=== PATIENT | female | born 1945 | race Caucasian/White ===

== ENCOUNTER → 2016-06-05 | Day surgery (SDC) | payer MEDICARE ==
--- NOTE | 2016-05-30 02:20 | CR ---
DATE OF CONSULTATION: 05/29/2016 PREOPERATIVE CONSULTATION: FOR: Dr. Jo for cataract extraction 06/05/2016 at [facility] ([facility]). Dear Dr. Jo: Thank you for asking me to see Ms. Grace Toribio in consultation prior to her cataract extraction. Patient is, as you know, a 71-year-old female, past medical history of legal blindness, hypothyroidism, osteoporosis, gastroesophageal reflux disease (GERD), who reports that she has been in her usual state of good health. Patient did have a surgical procedure, left tympanoplasty, 04/10/[address] Price with good results and progressive recovery. She denies any fevers or chills, chest pain, or shortness of breath. Patient reports tendency for loose stools. Avoids apple juice, soda, orange juice. Reports this is chronic, stable, and controlled in general with one Imodium a day. The patient has known osteoarthritis (OA), degenerative joint disease (DJD). She has intermittent right shoulder pain. She uses as-needed medicine to control pain as needed. This is chronic, stable. Patient has GERD. She takes ranitidine; rarely needs Tums. Patient is legally blind. She is hoping that the cataract extractions will help her vision. Patient reports increased stressors with her grandson and his significant other planning on moving in with her shortly. She is concerned about this. REVIEW OF SYSTEMS: Otherwise, negative. PAST MEDICAL HISTORY: 1. Uveitis with resultant legal blindness. 2. OA, DJD. 3. History of a ruptured appendix. 4. G2, P2. 5. Menopausal 1993. 6. Cholecystectomy in 2000. 7. Tension headaches. 8. Tobacco cessation after smoking 1 to 1-1/2 packs a day for 30 years; quit at age 57. 9. Esophageal mass, status post esophagogastroduodenoscopy (EGD) 01/2001, 05/2001, 12/2006, 01/2012 with the mass eventually felt to be secondary to reactive lymphocytes. EGDs have shown gastritis, intestinal metaplasia, reflux esophagitis. 10. Osteoporosis. History of Boniva use 07/2005 through fall 2008. Continues on calcium and D. Follows for that with Alesha Jaimes. 11. Grave's thyroiditis, status post radioactive iodine. Managed by Dr. Jaimes. 12. Vitamin D deficiency. 13. Rheumatic fever as a child. 14. Left perforated tympanic membrane , status post surgical correction March [address] Price. 15. Irritable bowel syndrome (IBS) with diarrhea. 16. Hyperlipidemia. MEDICATIONS: - Imodium 2 mg daily and as needed - levothyroxine 75 mcg daily - multivitamin daily - pravastatin 10 mg nightly - ranitidine 150 mg by mouth twice a day - Tums as needed - Viactiv daily - vitamin D3, 5000 international units daily DRUG ALLERGIES: None. SOCIAL HISTORY: Lives independently. Legally blind. Retired. Quit smoking at age 57 after smoking 30-50 pack-years. She raised her grandson who had moved to [place] but is presently moving back. FAMILY HISTORY: Father of a heart attack at 83. Mom had hypertension and of a heart attack at 82. Her sister had lung cancer and at 68. Her grandmother had throat cancer, and an aunt had anal cancer. PHYSICAL EXAM: No acute distress. VITAL SIGNS: Are weight 148 with a blood pressure of 112/76, heart rate of 64 and regular, oxygen saturation is 97%. HEENT: Head is normocephalic. Neck is supple. She does wear dentures. She is legally blind, but extraocular movements are intact. Left tympanic membrane is scarred from recent surgery, scant amount of erythema. Incision behind the left ear is healing well. NECK: Is supple. No thyromegaly, jugular venous distention (JVD), carotid bruits. RESPIRATORY: Clear to auscultation. Resonant to percussion. CARDIOVASCULAR: Soft systolic murmur. Regular rate, rhythm. BREAST EXAM: Deferred. ABDOMEN: Normoactive bowel sounds. Soft, nontender. No hepatosplenomegaly. EXTREMITIES: Some significant arthritic changes. right hand greater than left. NEUROLOGIC: Alert and oriented. Cranial nerves II-XII are intact. LABORATORY DATA: From 03/26/2016, EKG shows sinus bradycardia, rate of 57, axis of 8 degrees. Normal TX, QRS, QTc interval. Normal R wave progression. No atrial or ventricular hypertrophy. No pathologic Q waves. Unchanged from previous EKG. 03/26/2016 showed a normal med profile. From 02/14/2016, showed lipids with a total cholesterol of 204 and LDL of 121. From 02/02/2016, normal CBC, TSH. From 10/06/2015, normal vitamin D at 63. IMPRESSION: Ms. Grace Toribio is a 71-year-old female with cardiovascular risk factors positive for age, hyperlipidemia. Patient has no signs or symptoms indicative of cardiovascular ischemia and is felt to be optimized and at low risk for cardiovascular complications from the proposed surgical intervention, which can be further minimized by the followin. Hyperlipidemia. Patient will continue pravastatin perioperatively but hold morning of surgery. 2. Gastroesophageal reflux disease. Patient will take her ranitidine morning of surgery. 3. Hypothyroid. Patient will take her Levoxyl morning of surgery. 4. Irritable bowel syndrome with diarrhea. Patient will take her Imodium morning of surgery. 5. Vitamin D deficiency. Hold vitamin D and calcium morning of surgery. 6. Osteoarthritis, degenerative joint disease. No nonsteroidal anti-inflammatory drugs (NSAIDs). I have approved use of Tylenol as needed and topical therapies perioperatively. 7. Tinnitus, slightly improved. Patient unsure whether she is adapting to this or it is actually improving. 8. Uveitis, declining vision. Hopefully will improve with cataract extractions. 9. Stress. Support offered. Thank you for this consultation. Please call with any questions or concerns.
[~2016-06-05] VITALS: Ht 154.9 cm; Wt 67.1 kg
[~2016-06-05] MED LIST: ACETAMINOPHEN 325 MG TAB PO PRN; AcetaZOLAMIDE 500 MG ER CAP PO ONE; BSS with VANC/TOB/EPI for EYE CASES IR ONE; CALC500C PO; CALC500C8 PO; CYCLOPENTOLATE 2% OPHTH SOLN OS ONE; D5W/0.2% SODIUM CHLORIDE 250 ML IV SCH; HEALON DUET (HEALON 10MG/ML 0.55ML & HEALON ENDOCOAT 30MG/ML 0.85ML) As Ordered ONE; HEALON DUET (HEALON 10MG/ML 0.55ML & HEALON ENDOCOAT 30MG/ML 0.85ML) XX ONE; IMOD2CHW PO; KETOROLAC 0.5% OPHTH SOLN OS ONE; LEVO75TA4 PO; LIDOCAINE 1% SDV 5 ML VIAL As Ordered ONE; LIDOCAINE 1% SDV 5 ML VIAL XX ONE; LIDOCAINE 4% INJ 5 ML AMP OU ONE; LIDOCAINE W/EPINEPHRINE 1% 20ML VIAL XX ONE; LOPE2TAB3 PO; MIDAZOLAM INJ 2 MG/2 ML VIAL (J2250) As Ordered ONE; MOXIFLOXACIN IN BSS 0.25MG/0.25ML INTRACAMERAL INJ (OR EYE ONLY)(J2280) As Ordered ONE; MOXIFLOXACIN IN BSS 0.25MG/0.25ML INTRACAMERAL INJ (OR EYE ONLY)(J2280) ICAM ONE; MULTCHW13 PO; OFLOXACIN 0.3 % (OCUFLOX) OPTH SOL 5ML XX ONE; PHENYLEPHRINE 2.5% OPHTH SOL 2ML OS ONE; POVIDONE-IODINE 5% OPHTH PREP SOL 30ML As Ordered ONE; PRAV10TA3 PO; PRAV40TA2 PO; PROPARACAINE 0.5% OPHTH SOL 15ML OS PRN; RANI15TA PO; TRIAMCINOLONE PRES FR 40 MG/ML 1ML(TRIESENCE)(OR EYE ONLY)(J3300 PER 1MG) As Ordered ONE; TRIAMCINOLONE PRES FR 40 MG/ML 1ML(TRIESENCE)(OR EYE ONLY)(J3300 PER 1MG) IO ONE; TRIMETHOBENZAMIDE 300 MG CAP PO PRN; TROPICAMIDE 1% OPHTH SOLN 2 ML OS ONE; VITA200016 PO; fentaNYL 100 MCG/2 ML INJECTION (J3010) As Ordered ONE
[2016-06-05 10:35] VITALS: BP 116/63
== END | disposition home or self-care (01) ==
LOC: M SDC 08:26
PROVIDERS: ATTEND Ophthalmology
DX: H26.9 Unspecified cataract (principal); E05.00 Thyrotoxicosis with diffuse goiter without thyrotoxic crisis or storm; E55.9 Vitamin D deficiency, unspecified; K21.9 Gastro-esophageal reflux disease without esophagitis; H93.19 Tinnitus, unspecified ear; H20.10 Chronic iridocyclitis, unspecified eye; K58.0 Irritable bowel syndrome with diarrhea; E78.5 Hyperlipidemia, unspecified; M15.0 Primary generalized (osteo)arthritis; M81.0 Age-related osteoporosis without current pathological fracture; K29.70 Gastritis, unspecified, without bleeding; R51 Headache; H54.8 Legal blindness, as defined in USA; Z78.0 Asymptomatic menopausal state; Z79.899 Other long term (current) drug therapy; Z87.891 Personal history of nicotine dependence
CPT/HCPCS: 66984; J2250; J2280; J3010; J3300; V2632

== ENCOUNTER → 2016-07-15 | Day surgery (SDC) | payer MEDICARE ==
--- NOTE | 2016-07-08 01:39 | CR ---
DATE OF CONSULTATION: 07/02/2016 PREOPERATIVE CONSULTATION: Dr. Mayuri Vargas dictating a preoperative consultation on Grace Toribio for right cataract extraction scheduled for 07/15/2016 at [facility] ([facility]). Dear Dr. Jo: Thank you for asking me to see Ms. Grace Toribio in consultation prior to her cataract extraction. Ms. Toribio is, as you know, a 71-year-old female with a past medical history of legal blindness, hypothyroidism, osteoporosis, gastroesophageal reflux disease (GERD), who reports that she has been in her usual state of good health except for recent stressors related to her grandson and friend moving into her home. Patient is status post left cataract extraction about a month ago with good results, although she reports she is on some additional eye drops for inflammation. She is pleased that her vision has improved since having had the cataract extracted. Patient has known history of GERD, well controlled on ranitidine twice a day. Patient has chronic diarrhea, well controlled with one pill of Imodium a day. Patient is status post left tympanoplasty 04/10/2016. Reports she continues to recover, although posteriorly her ear is itchy as it is healing. Patient has known osteoarthritis (OA)/degenerative joint disease (DJD), particularly right shoulder but chronic/stable. Patient reports some chest tightness. She has had two episodes. They are not related to activity, and she feels they are stress related. Symptoms are brief. One episode occurred while driving and radiated to her right armpit. Another episode occurred while sitting and radiated to her throat. She is active on the treadmill three times a week, walking 30 minutes at a time with no chest pain, palpitations, syncope, or presyncope. Patient notes that the two episodes of chest pain occurred since her grandson and his friend moved in with her. She admits that she has had increased stress and anxiety since that time. Patient, otherwise, denies any fevers or chills, chest pain or shortness of breath, nausea, or vomiting. Patient does complain of fatigue. She has chronic insomnia, in general sleeping only 5 hours at night, and this has been worse with increased stressors. REVIEW OF SYSTEMS: Otherwise, negative. PAST MEDICAL HISTORY: 1. Uveitis with resultant legal blindness. 2. OA/DJD. 3. History of a ruptured appendix. 4. G2, P2. 5. Menopausal 1993. 6. Cholecystectomy 2000. 7. Tension headaches. 8. Tobacco cessation. Smoked 1 to 1-1/2 packs a day for 30 years, quit at age 57. 9. Esophageal mass status post esophagogastroduodenoscopy (EGD) January 2001, May 2001, December 2006, January 2012 with a mass eventually felt to be benign and secondary to reactive lymphocytes. Patient did have evidence of gastritis, intestinal metaplasia, and reflux esophagitis. 10. Osteoporosis. History of Boniva use 2005 through 2008. Follow[address] with Dr. Alesha Jaimes. 11. Graves' thyroiditis status post radioactive iodine. Managed with Dr. Alesha Jaimes. 12. Vitamin D deficiency. Managed with Dr. Jaimes. 13. Rheumatic fever as a child. 14. Left perforated tympanic membrane 1980 status post surgical correction March [address] Price. 15. Irritable bowel syndrome (IBS) with diarrhea, maintained on Imodium. 16. Hyperlipidemia. PATIENT'S MEDICATIONS: Are: - coated baby aspirin daily - pravastatin 10 mg daily - Viactiv twice a day - ranitidine 150 mg twice a day - levothyroxine 75 mcg daily - vitamin D3, 5000 international units daily - multivitamin daily - Tums as needed - Imodium daily SOCIAL HISTORY: Lives independent. Legally blind. Retired. Quit smoking at age 57 after smoking 30-50 years. She raised her grandson who moved to [place] but has just recently moved back with his significant other. Both are seeking employment. Multiple stressors. FAMILY HISTORY: Father of heart disease at 83. Mom had hypertension, of heart disease at 82. Patient's sister had lung cancer and at 68. Her grandmother had throat cancer, and an aunt anal cancer. PHYSICAL EXAM: She is a thin female. No acute distress. Vital Signs: Are weight 147 with a body mass index (BMI) of 27.5. Oxygen saturation is 98%. Blood pressure 126/80 with a heart rate of 84. HEENT Exam: Head is normocephalic. Neck is supple. Wears dentures. Legally blind. Extraocular movements intact. Left tympanic membrane is scarred from recent surgery. Incision behind left ear is healing well. Neck: Is supple. No thyromegaly, jugular venous distention (JVD), carotid bruits. Cardiovascular: Regular rate, rhythm. Soft systolic murmur. No reproducible pain with pressure over the chest wall. Respiratory: Clear to auscultation. Breast Exam: Deferred. Abdomen: Normoactive bowel sounds. Soft, nontender. No hepatosplenomegaly. Extremities: Some arthritic changes, right greater than left. Neurologically: Intact. LABORATORY DATA: An EKG updated today shows normal sinus rhythm, rate of 69, axis of 12 degrees, normal NH, QRS, QTc. No atrial or ventricular hypertrophy. No pathologic Q waves. Essentially normal EKG. Unchanged from previous EKG. Laboratory data from 03/26/2016 showed normal med profile. 02/14/2016 showed lipids with a total cholesterol of 204 and an LDL of 121. From 02/02/2016, normal CBC, TSH. From 10/06/2015, she had a normal vitamin D at 63. IMPRESSION: Ms. Grace Toribio is a 71-year-old female with cardiovascular risk factors positive only for age and hyperlipidemia. Patient has had some atypical chest pain. EKG is unchanged, and this is not felt to be cardiac in etiology but stress induced. Patient is felt to be optimized and at low risk for cardiovascular complications from the proposed surgical intervention, which can be further minimized by the following: PROBLEMS: 1. Hyperlipidemia. Take pravastatin morning of surgery as usual. She will hold her aspirin morning of surgery. 2. Gastroesophageal reflux disease. Take ranitidine morning of surgery as usual. 3. Hypothyroid. Take Levoxyl with sip of water morning of surgery. 4. Irritable bowel syndrome with diarrhea. Take Imodium morning of surgery. 5. Vitamin D deficiency. Hold D and calcium morning of surgery. 6. Osteoarthritis/degenerative joint disease. I have approved Tylenol prior to surgery. 7. Stress. Support offered. Further evaluation/treatment discussed and refused at this time. Patient will followup with me in July. 8. Insomnia, chronic. Good sleep habits reinforced. Stress reduction encouraged.
[~2016-07-15] VITALS: Ht 154.9 cm; Wt 66.7 kg
[~2016-07-15] MED LIST changes: +CYCLOPENTOLATE 2% OPHTH SOLN OD ONE; -CYCLOPENTOLATE 2% OPHTH SOLN OS ONE; -HEALON DUET (HEALON 10MG/ML 0.55ML & HEALON ENDOCOAT 30MG/ML 0.85ML) XX ONE; +KETOROLAC 0.5% OPHTH SOLN OD ONE; -KETOROLAC 0.5% OPHTH SOLN OS ONE; -LIDOCAINE 1% SDV 5 ML VIAL XX ONE; -LIDOCAINE W/EPINEPHRINE 1% 20ML VIAL XX ONE; -MOXIFLOXACIN IN BSS 0.25MG/0.25ML INTRACAMERAL INJ (OR EYE ONLY)(J2280) ICAM ONE; +OFLOXACIN 0.3 % (OCUFLOX) OPTH SOL 5ML OD ONE; -OFLOXACIN 0.3 % (OCUFLOX) OPTH SOL 5ML XX ONE; +PHENYLEPHRINE 2.5% OPHTH SOL 2ML OD ONE; -PHENYLEPHRINE 2.5% OPHTH SOL 2ML OS ONE; +PROPARACAINE 0.5% OPHTH SOL 15ML OD PRN; -PROPARACAINE 0.5% OPHTH SOL 15ML OS PRN; -TRIAMCINOLONE PRES FR 40 MG/ML 1ML(TRIESENCE)(OR EYE ONLY)(J3300 PER 1MG) IO ONE; +TROPICAMIDE 1% OPHTH SOLN 2 ML OD ONE; -TROPICAMIDE 1% OPHTH SOLN 2 ML OS ONE
[2016-07-15 12:05] VITALS: BP 146/64
== END | disposition home or self-care (01) ==
LOC: M SDC 09:37
PROVIDERS: ATTEND Ophthalmology
DX: H26.9 Unspecified cataract (principal); F17.290 Nicotine dependence, other tobacco product, uncomplicated; E03.9 Hypothyroidism, unspecified; E78.00 Pure hypercholesterolemia, unspecified; K58.9 Irritable bowel syndrome, unspecified; K21.9 Gastro-esophageal reflux disease without esophagitis; M54.9 Dorsalgia, unspecified; Z90.710 Acquired absence of both cervix and uterus; Z79.899 Other long term (current) drug therapy
CPT/HCPCS: 66984; J2250; J2280; J3010; J3300; V2632

== ENCOUNTER 2017-04-29 12:36 | Day surgery (SDC) | payer MEDICARE ==
[2017-04-29] MEDS: LR 1,000 ML IV (13:00)
[2017-04-29] MEDS ORDERED: LIDOCAINE 2% INJ 100 MG/5 ML SDV (FOR ANES.) As Ordered (15:27)
[2017-04-29] MEDS ORDERED: PROPOFOL 200 MG/20 ML VIAL As Ordered ×3 (15:27→15:41)
== END 2017-04-29 16:25 | disposition home or self-care (01) ==
LOC: M OPP 12:36
DX: R13.10 Dysphagia, unspecified (principal); K44.9 Diaphragmatic hernia without obstruction or gangrene; K22.2 Esophageal obstruction; M19.90 Unspecified osteoarthritis, unspecified site; E78.5 Hyperlipidemia, unspecified; E05.90 Thyrotoxicosis, unspecified without thyrotoxic crisis or storm; K21.9 Gastro-esophageal reflux disease without esophagitis; M81.0 Age-related osteoporosis without current pathological fracture; Z78.0 Asymptomatic menopausal state; Z79.899 Other long term (current) drug therapy
CPT/HCPCS: 43249

== ENCOUNTER → 2019-02-25 | Outpatient (REF) | payer MEDICARE ==
[~2019-02-25] MED LIST changes: -ACETAMINOPHEN 325 MG TAB PO PRN; -AcetaZOLAMIDE 500 MG ER CAP PO ONE; -BSS with VANC/TOB/EPI for EYE CASES IR ONE; -CYCLOPENTOLATE 2% OPHTH SOLN OD ONE; -D5W/0.2% SODIUM CHLORIDE 250 ML IV SCH; -HEALON DUET (HEALON 10MG/ML 0.55ML & HEALON ENDOCOAT 30MG/ML 0.85ML) As Ordered ONE; +IMOD2CAP PO; -KETOROLAC 0.5% OPHTH SOLN OD ONE; -LIDOCAINE 1% SDV 5 ML VIAL As Ordered ONE; -LIDOCAINE 4% INJ 5 ML AMP OU ONE; +LOPE2TAB12 PO; -MIDAZOLAM INJ 2 MG/2 ML VIAL (J2250) As Ordered ONE; -MOXIFLOXACIN IN BSS 0.25MG/0.25ML INTRACAMERAL INJ (OR EYE ONLY)(J2280) As Ordered ONE; -MULTCHW13 PO; +MULTCHW14 PO; -OFLOXACIN 0.3 % (OCUFLOX) OPTH SOL 5ML OD ONE; -PHENYLEPHRINE 2.5% OPHTH SOL 2ML OD ONE; -POVIDONE-IODINE 5% OPHTH PREP SOL 30ML As Ordered ONE; -PROPARACAINE 0.5% OPHTH SOL 15ML OD PRN; -TRIAMCINOLONE PRES FR 40 MG/ML 1ML(TRIESENCE)(OR EYE ONLY)(J3300 PER 1MG) As Ordered ONE; -TRIMETHOBENZAMIDE 300 MG CAP PO PRN; -TROPICAMIDE 1% OPHTH SOLN 2 ML OD ONE; -fentaNYL 100 MCG/2 ML INJECTION (J3010) As Ordered ONE
== END ==
LOC: M LAB REF 13:26
PROVIDERS: ATTEND Otolaryngology
DX: H60.8X1 Other otitis externa, right ear (principal)

== ENCOUNTER → 2019-07-27 | Outpatient (REF) | payer MEDICARE, MEDICAID ==
[2019-07-27 13:17] LABS: C REACTIVE PROTEIN QUANTITATIV 3.79 MG/DL (0.00-0.30); RHEUMATOID FACTOR QUANT < 10.0 IU/ML (<15.0)
[2019-07-27 23:13] LABS: FERRITIN 170 NG/ML (8-252); IRON (FE) 65 UG/DL (50-170); PERCENT SATURATION 18.1 % (13.2-45.0); TOTAL IRON BINDING CAPACITY 359 UG/DL (250-450)
[2019-07-29 00:10] LABS: ANA (HEP2) Negative (.); ANGIOTENSIN 1 CONVERTING ENZYM 18 U/L (14-82); CYCLIC CITRULLINATED PEPTIDE 25 units (0-19)
== END ==
LOC: M LAB REF 12:26
PROVIDERS: ATTEND Internal Medicine
DX: H20.013 Primary iridocyclitis, bilateral (principal); D64.9 Anemia, unspecified; Z79.899 Other long term (current) drug therapy

== ENCOUNTER → 2019-11-04 | Outpatient (REF) | payer MEDICARE | LOC: M LAB REF 12:28 | PROVIDERS: ATTEND Internal Medicine | DX: M06.4 Inflammatory polyarthropathy (principal) ==

== ENCOUNTER → 2020-02-01 | Outpatient (REF) | payer MEDICARE | LOC: M LAB REF 12:39 | PROVIDERS: ATTEND Internal Medicine | DX: M25.40 Effusion, unspecified joint (principal) ==

== ENCOUNTER → 2020-03-02 | Outpatient (REF) | payer MEDICARE | LOC: M SFHCRHEU 12:50 | PROVIDERS: ATTEND Internal Medicine | DX: R76.8 Other specified abnormal immunological findings in serum (principal); R70.0 Elevated erythrocyte sedimentation rate; R79.82 Elevated C-reactive protein (CRP) | CPT/HCPCS: 85652; 86140; 86200; G0463 ==

== ENCOUNTER → 2020-04-06 | Outpatient (REF) | payer MEDICARE ==
[2020-04-06 13:07] LABS: INR 0.91; PROTHROMBIN TIME 12.4 SECONDS (12.5-14.3)
[2020-04-06 13:08] LABS: PARTIAL THROMBOPLASTIN TIME 30.7 SECONDS (24.2-38.5)
== END ==
LOC: M LAB REF 12:31
PROVIDERS: ATTEND Internal Medicine
DX: I89.8 Other specified noninfective disorders of lymphatic vessels and lymph nodes (principal)

== ENCOUNTER → 2020-04-14 | Outpatient (CLI) | payer MEDICARE ==
[~2020-04-14] MED LIST changes: +D31000TA2 PO; +FOSA70TA PO; +LIDOCAINE 1% MDV 20ML VIAL As Ordered ONE; +OYST1TAB PO; +SODIUM BICARBONATE 8.4% INJ 50MEQ 50 ML VIAL As Ordered ONE; +VITMTA PO; +XIID5DRO
[2020-04-14 12:52] VITALS: BP 135/63
--- NOTE | 2020-04-14 16:14 | REP ---
INDICATION: LT PELVIC MASS. COMPARISON: None. TECHNIQUE: The procedure was performed by MYRIAM Nevarez, under the direct supervision of Dr. Laird. The risks and benefits of the procedure were explained to the patient and an informed consent was obtained both verbally and written. Directly prior to the start of the procedure a formal time-out was completed in the procedure room. FINDINGS: Using ultrasound guidance the left pelvic mass was localized. The skin was prepped and draped in a sterile fashion. Twenty mL of buffered lidocaine was used as a local anesthetic. Using ultrasound guidance a 17/18 gauge coaxial needle biopsy system was inserted and advanced into the left pelvic mass. Eight core biopsy specimens were obtained. Four specimens were sent to our lab here, and remaining 4 were sent out in RPMI solution, for further testing The patient tolerated the procedure well and there were no immediate complications. After the appropriate amount of monitored convalescence the patient was discharged from the department. IMPRESSION: 1. Ultrasound-guided left pelvic mass biopsy. <Electronically signed by Maureen Toney > 04/14/20 1440 <Electronically signed by Tristen Laird > 04/14/20 1610
== END ==
LOC: M IRPRO 11:47
PROVIDERS: ATTEND Internal Medicine
DX: C83.30 Diffuse large B-cell lymphoma, unspecified site (principal)

== ENCOUNTER → 2020-05-12 | Outpatient (CLI) | payer MEDICARE ==
[~2020-05-12] MED LIST changes: -CALC500C PO; -LIDOCAINE 1% MDV 20ML VIAL As Ordered ONE; +ONDA8TAB10 PO; +PRES10CA2 PO; +PROC10TA4 PO; +RA A500C4 PO; -SODIUM BICARBONATE 8.4% INJ 50MEQ 50 ML VIAL As Ordered ONE
--- NOTE | 2020-05-16 08:44 | ECHO ---
DATE OF PROCEDURE: 05/12/2020 Age: 75 Gender: Female Height: 152 cm Weight: 51 kg REFERRING PHYSICIAN: Bora Lugo MD INDICATION: Chemotherapy drugs that may affect the heart. MEASUREMENTS: 2D Measurements: Intraventricular septum 0.87 cm Posterior wall 0.67 cm Left ventricle diastole 4.5 cm Aortic root 3.0 cm Left atrium 2.8 cm Left atrium volume index 20 cm Inferior vena cava 1.1 cm with normal respiratory variation Doppler Measurements: No aortic stenosis No aortic regurgitation Aortic valve velocity 110 cm/s LVOT velocity 82.7 cm/s No mitral regurgitation Mitral E velocity 62.7 cm/s Mitral A velocity 82.4 cm/s Mitral deceleration time 254 msec Trace tricuspid regurgitation No pulmonic regurgitation Pulmonary artery acceleration time 155 msec MITRAL ANNULAR TISSUE DOPPLER No valid due to being more than 6 degrees off axis DESCRIPTION: Rhythm was predominantly sinus with some PVCs. Image quality was fair. This was a 2D, M-mode, color flow Doppler, and pulsed wave Doppler examination including mitral annular tissue Doppler. CONCLUSIONS: 1. Normal left ventricle internal dimensions and wall thickness. Normal regional LV wall motion and wall thickening. Normal LV systolic function. Grade 1 LV diastolic dysfunction. 2. No pericardial effusion. 3. Pulmonary artery systolic pressure not elevated. 4. Lipomatous hypertrophy of the interatrial septum. 5. Otherwise normal appearing echocardiogram Doppler findings. MTDD
== END ==
LOC: M CARPUL 08:59
PROVIDERS: ATTEND Specialist
DX: C83.30 Diffuse large B-cell lymphoma, unspecified site (principal); Z79.899 Other long term (current) drug therapy; I51.7 Cardiomegaly

== ENCOUNTER → 2020-05-16 | Outpatient (CLI) | payer MEDICARE ==
--- NOTE | 2020-05-16 18:46 | REP ---
INDICATION: STAGING DIFFUSE LARGE B CELL LYMPHOMA. Status post ultrasound-guided needle biopsy of left pelvic lymphadenopathy on April 14, 2020. COMPARISON: Comparison CT study abdomen pelvis and chest March of 2020.. TECHNIQUE: Fifty-four minutes following the intravenous injection of a 7.73 mCi dose of F-18 FDG, three-dimensional PET scintigraphy is acquired from the skull base to the proximal thighs. Triplanar noncontrast CT scanning is acquired through the same anatomic range for attenuation correction, and image registration with scan parameters optimized to minimize radiation exposure to the patient. PET scintigraphy and CT datasets were fused and displayed on a workstation with multiplanar and projection display capability. FINDINGS: Head and neck soft tissues are unremarkable. No abnormal hypermetabolic uptake is seen within the thorax. The liver and spleen are normal in size and show normal uptake. There is markedly hypermetabolic adenopathy in the periaortic region extending from the level of the renal vascular pedicle on the left to the aortic bifurcation. There is extensive hypermetabolic left internal and external iliac lymphadenopathy as well. Maximum standard uptake value in this adenopathy ranges from a small left periaortic hong focus which shows maximum standard uptake value of 4.762 larger confluent foci of markedly hypermetabolic uptake maximum standard uptake value 38.39. Left pelvic sidewall hypermetabolic focus shows maximum SUV value 33.90. There is right common iliac artery adenopathy at the aortic bifurcation maximum SUV value 27.4. No inguinal adenopathy is seen. No other abnormal hypermetabolic focus is seen in the abdomen or pelvis. No abnormal skeletal or pulmonary parenchymal focus. IMPRESSION: Markedly hypermetabolic hong uptake is seen in the retroperitoneum and left pelvis. There is a single right common iliac artery hong focus of hypermetabolic uptake as well. The spleen is normal in size and shows no abnormal uptake. Left-sided hydronephrosis is again seen. <Electronically signed by Tristen Laird > 05/16/20 [id number]
== END ==
LOC: M PLARAD 13:11
PROVIDERS: ATTEND Specialist
DX: C83.30 Diffuse large B-cell lymphoma, unspecified site (principal)
CPT/HCPCS: 78815; A9552

== ENCOUNTER → 2020-05-18 | Outpatient (CLI) | payer MEDICARE ==
[~2020-05-18] MED LIST changes: +ISOVUE-300 61% 50ML VIAL As Ordered ONE; +LIDOCAINE 1% MDV 20ML VIAL As Ordered ONE; +MIDAZOLAM INJ 2MG/2ML VIAL (J2250 PER 1MG) As Ordered ONE; +PROMETHAZINE INJ 25 MG/ML VIAL (J2550) As Ordered ONE; +ceFAZolin 2 GM/D5W 50 ML IV BAG (J0690 PER 500MG) As Ordered ONE; +diphenhydrAMINE 50MG/ML VIAL (J1200) As Ordered ONE; +fentaNYL 100 MCG/2 ML INJECTION (J3010) As Ordered ONE
--- NOTE | 2020-05-18 13:59 | POST-OPPD ---
Postoperative Procedure Note Date Of Procedure: May 18, 2020 Time Of Procedure: 13:58 IR Ultrasound and fluoroscopy guided port placement IR Ultrasound of the neck. IR Moderate sedation. Clinical indication: Lymphoma. Physician: Dr. Lacey. Procedure: The patient was advised of the benefits, risks, and alternatives of the procedure and informed consent was obtained. A time-out was performed with verification of the patient's name, MRN, site of procedure and type of procedure to be performed. The patient was positioned in the supine position on the angiographic table. The site was prepped and draped in the usual sterile fashion. Moderate sedation was performed by the physician including the presence of an independent trained RN who assisted and monitored the patient's level of consciousness and physiologic status. Following the administration of fentanyl and Versed , the physician spent 45 minutes of continuous face to face time with the patient. Ultrasound of the neck reveals a patent and compressible right internal jugular vein. A crankshaft grinder radiograph reveals no gross abnormality. The neck and anterior chest wall were anesthetized with lidocaine. The right internal jugular vein was accessed using a microintroducer needle under ultrasound guidance, via a lateral approach. An 018 wire was advanced into the superior vena cava, the needle was removed and a microsheath was placed. An Amplatz wire was then passed into the inferior vena cava. An incision at the internal jugular vein access site and anterior chest wall were made using a scalpel. An incision was made at the anterior chest wall. A small pocket was created using a combination of blunt and sharp dissection. A tunneling device was then used to pass the catheter from the pocket to the neck puncture site. An 8- [place] Angio Dynamighty Smart power port was then positioned in the pocket. The catheter was then measured and cut. The introducer sheath was exchanged for a peel-away sheath. The catheter was passed through the peel-away sheath into the internal jugular vein and the peel-away sheath was removed. The port tip was positioned at the cavoatrial junction. The port was then accessed with a Colmenares needle. The port flushes and aspirates well. The puncture site in the neck was closed. The chest wall incision was then closed with 2-0 Vicryl and 4-0 Monocryl. Glue and Steri- Strips were applied. A sterile dressing was then applied. The patient tolerated the procedure well and was returned to the PRU in stable condition. Estimated blood loss: <5 ml. Complications: None. Conclusion: 1. Successful placement of an 8-[place] Angio dynamics Smart power port via the right internal jugular vein. The port is ready for immediate use. 2. Patient to follow up in IR clinic in 2 weeks. Thank you for this referral. ROGERS LACEY MD May 18, 2020 13:59
[2020-05-18 15:15] VITALS: BP 149/75
== END ==
LOC: M IRPRO 11:57
PROVIDERS: ATTEND Specialist
DX: C83.30 Diffuse large B-cell lymphoma, unspecified site (principal)
CPT/HCPCS: 36561; 99152; 99153; C1769; C1788; C1894; J0690; J1200; J1642; J1644; J2250; J3010

== ENCOUNTER → 2020-06-01 | Outpatient (CLI) | payer MEDICARE ==
[~2020-06-01] MED LIST changes: -ISOVUE-300 61% 50ML VIAL As Ordered ONE; -LIDOCAINE 1% MDV 20ML VIAL As Ordered ONE; -MIDAZOLAM INJ 2MG/2ML VIAL (J2250 PER 1MG) As Ordered ONE; -PROMETHAZINE INJ 25 MG/ML VIAL (J2550) As Ordered ONE; -ceFAZolin 2 GM/D5W 50 ML IV BAG (J0690 PER 500MG) As Ordered ONE; -diphenhydrAMINE 50MG/ML VIAL (J1200) As Ordered ONE; -fentaNYL 100 MCG/2 ML INJECTION (J3010) As Ordered ONE
--- NOTE | 2020-06-01 14:56 | RADONC.CN ---
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 She has recently undergone BM biopsy which is pending. She is seen today at the request of Dr. Lugo for consideration of radiation therapy as a neoadjuvant approach to protect her left kidney while initial systemic therapy decisions are finalized. Diagnosis/Treatment History Oncologic History Noted left leg swelling, and night sweats, in December 2020, this led to CT abdomen and pelvis on 03/30/20 which showed enlarged left sided retroperitoneal and pelvic adenopathy. CT chest on 04/13/20 showed no supradiaphragmatic disease. She had a biopsy of the pelvic adenopathy which showed DLBCL germinal center type without high risk cytogenetics. PET-CT on 05/16/20 revealed avidity in the enlarged hong agglomerates and no extranodal foci of disease. BM biopsy was performed on 05/31/20. Results are anticipated in ~ 2 weeks. Recent labs: Item Value Date Time White Blood Count 4.6 10^3/uL 05/31/20 0830 Red Blood Count 3.77 10^6/uL L 05/31/20 0830 Hemoglobin 11.3 g/dl L 05/31/20 0830 Hematocrit 35.4 % L 05/31/20 0830 Platelet Count 237 10^3/uL 05/31/20 0830 Item Value Date Time Sodium Level 138 MEQ/L 05/09/20 1526 Potassium Level 3.8 MEQ/L 05/09/20 1526 Chloride Level 104 MEQ/L 05/09/20 1526 Carbon Dioxide Level 32 MEQ/L 05/09/20 1526 Anion Gap 2 MEQ/L L 05/09/20 1526 Blood Urea Nitrogen 17 MG/DL 05/09/20 1526 Creatinine 0.97 MG/DL 05/09/20 1526 Glomerular Filtration Rate 59.8 05/09/20 1526 Calcium Level 10.9 MG/DL H 05/09/20 1526 Fasting Glucose 83 MG/DL 05/09/20 1526 Interval History She feels well. She has some soreness in her mediport incision. No pain in the hip from the BM biopsy. She has ongoing night sweats. No fevers or weight loss. She has some mid abdominal pain and fullness which is not debilitating she has a cholecystectomy history. She has regular BMs. She has some increased urinary frequency recently but no dysuria. No retention or hematuria. Past Medical History: Arthritis Macular degeneration Hyperthyroidism treated with CORDOVA 2007 Past Surgical History: Cholecystectomy Appendectomy Cataracts Ear surgery (perforated drum 2016) Family History: Extensive family history of lung cancer (smoking, siblings parents etc) Social History: Former 20 pack year smoker Drinks 1 drink per week Allergies / Meds Allergies: Coded Allergies: No Known Allergies (Unverified , 11/03/18) Home Meds Reported Medications Vit C/E/Zn/Coppr/Lutein/Zeaxan (Preservision Areds 2 Softgel) 1 Each Capsule, 1 EACH PO, CAP 05/09/20 Multivitamins (Thera M Plus Tablet) 1 Each Tablet, 1 TAB PO QAM for 30 Days, #30 TAB 04/13/20 Alendronate Sodium (Fosamax) 70 Mg Tablet, 70 MG PO Q7D for 30 Days, #4 TAB in the morning, at least 30 minutes before the first food, beverage, or medication of the day 04/13/20 Cholecalciferol (Vitamin D3) (Vitamin D3) 1,000 Unit Tablet, 5000 UNITS PO DAILY for 5 Days, TAB 04/13/20 Calcium Carbonate (Calcium) 500 Mg Tablet, 2 TAB PO DAILY for 30 Days, #60 TAB 04/13/20 Lifitegrast (Xiidra) 5% Droperette 04/13/20 Pravastatin Sodium (Pravastatin Sodium) 10 Mg Tab, 10 MG PO DAILY, TAB 05/30/16 Levothyroxine Sodium (LEVOTHYROXINE SODIUM) 75 Mcg Tab, 75 MCG PO DAILY, TAB 04/10/16 Discontinued Reported Medications Loperamide HCl (Imodium A-D) 2 Mg Tablet, 4 MG PO DAILYPRN, TAB 11/03/18 Review of Systems Constitutional: Reports: Night Sweats, Fatigue, Normal appetite; Denies: Chills, Fever, Weight Loss Eyes: Reports: Vision change; Denies: Pain HEENT: Denies: Head Aches, Dysphagia, Sore Throat Skin: Denies: Rash, Lesions, Bruising Pulmonary: Denies: Dyspnea, Cough Cardiovascular: Denies: Chest Pain, Palpitations, Edema Gastrointestinal: Reports: Abdominal Pain; Denies: Nausea, Vomiting, Diarrhea Genitourinary: Reports: Frequency; Denies: Dysuria, Incontinence, Hematuria Hematologic: Reports: Bruising Musculoskeletal: Denies: Neck pain, Back pain Neurological: Denies: Weakness, Numbness, Incoordination Psych: Reports: Mood Normal; Denies: Memory Issues, Thoughts of Self Harm Vital Signs Ht 60" Wt 144 lbs BMI 28 T 97.8 P 68 RR 16 BP 132/77 O2 94% Pain 0 Fatigue 1 General Exam: Positive: Alert, Cooperative, No Acute Distress Eye Exam: Positive: PERRLA, EOMI ENT EXAM: Positive: Mucous membr. moist/pink, Pharynx Normal Neck Exam: Negative: Thyromegaly, Lymphadenopathy Chest Exam: Positive: Normal air movement; Negative: Rales, Rhonchi, Wheezing Heart Exam: Positive: Rate Normal, Regular Rhythm Abdomen Exam: Positive: Normal bowel sounds, Soft; Negative: Tenderness, Hepatospenomegaly, Mass, Other (No CVA tenderness) Extremity Exam: Positive: Other (Bruising LLE); Negative: Edema, Tenderness Skin Exam: Positive: Nl turgor and temperature; Negative: Rash Neuro Exam: Positive: Normal Gait, Normal Speech, Cranial Nerves 3-12 NL Psych Exam: Positive: Mental status NL, Mood NL, Memory Intact Diagnostic and Laboratory Diagnostic Review Radiologic images, relevant labs and pathology reports were personally reviewed and discussed with Ms. Toribio. Assessment and Plan Impression Ms. 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 She has recently undergone BM biopsy which is pending. She is seen today at the request of Dr. Lugo for consideration of radiation therapy as a neoadjuvant approach to protect her left kidney while initial systemic therapy decisions are finalized. Stage Stage IIB DLBCL of intra-abdominal and pelvic LN. Performance Status ECOG 0 Plan We had an extensive discussion with Ms. Toribio regarding the diagnosis at hand and available therapeutic options. She has well lateralized left sided retroperitoneal and pelvic involved nodes causing left hydronephrosis and hydroureter with preserved urine output and no acute kidney injury or azotemia. She is fit for curative intent systemic therapy per Dr. Lugo, the only pending information left if the results of her bone marrow biopsy which was done yesterday. I explained that she has several options for protecting the left kidney in this scenario, first would be to place an internal stent to relieve obstruction, second would be a percutaneous nephrostomy tube (in the case where a stent was unable to be passed), to wait and proceed with systemic therapy when ready, or t o proceed with a neoadjuvant dose of RT, which should act to debulk the obstructing nodes and then onto systemic therapy. If she had overt evidence of compromised kidney function then I would advocate for the invasive approaches, however since she does not, and to facilitate surgical/IR intervention would undoubtedly add time and rekha-procedural risk, and potentially delay the start of systemic therapy, I do not think this is necessary. I offered a single fraction of RT 8Gy with DCA planning and a CBCT on the day of treatment for localization as a non-invasive alternative which should result in an excellent and immediate response and resolution of hydronephrosis. We can easily facilitate this prior to the anticipated start of systemic therapy (Dr. Lugo is seeing her to review the BM biopsy in 2 weeks). The anticipated side effects of this RT would be minimal, perhaps some fatigue. Given the location of the offending nodes well away from the kidney proper and also well enough away from bowel she would likely have no additional consequences of RT except the desired effect. Ideally she then would receive RCHOP x 4 cycles followed by ISRT. The low dose planned in the present course prior to initial systemic therapy and the location of disease, will not in any way preclude my ability to give the required 30 Gy ISRT dose safely and effectively with respect to the intraabdominal OARs (bowel, kidney, etc). If she proved to have BM involvement on biopsy then RCHOP for additional cycles without ISRT would be reasonable and obviate any implications for RT as consolidation. We discussed the logistics of receiving radiation therapy in detail including the need for a 1-time planning session. This can happen in the next 1-2 days. After discussing the risks, benefits and alternatives to radiation therapy, Ms. Toribio was amenable to pursuing radiotherapy. All questions were answered to the patient's satisfaction. We instructed the patient that if there were any questions,concerns or changes in clinical status in the interim to contact us. Recommendations RT 8 Gy in a single fraction to the obstructing left RP/pelvic nodes causing hydronephrosis/hydroureter Systemic therapy to follow per Dr. Brittney Contingent upon response/EOD we can safely consider ISRT upon completion of systemic therapy, i.e. this initial treatment will not complicate or compromise curative intent therapy Total time of (35) minutes was spent preparing for the visit (5), obtaining HPI (5), examining the patient (4), reviewing diagnostic tests (6), discussing management options (5), coordinating care (3), and writing this note (7). ADALI DURANT MD Jun 01, 2020 14:56
== END ==
LOC: M ONCR 12:42
PROVIDERS: ATTEND General Practice
DX: C83.33 Diffuse large B-cell lymphoma, intra-abdominal lymph nodes (principal)

== ENCOUNTER → 2020-06-06 | Outpatient (POV) | payer MEDICARE ==
--- NOTE | 2020-06-07 12:17 | IRPN ---
[facility] IR Progress Note IR Progress Note DATE: Jun 06, 2020 Patient agreed to this telephone follow-up. I spent 5 minutes talking to the patient. FOLLOW-UP: Status post port placement. Patient states no issues with the port site. No pain, swelling, redness or discharge. The port has not been used yet. ON EXAMINATION: Patient sent pictures of the port site. Port site appears to be healing well, no redness, swelling or discharge. Steri-Strips are still in place. IMPRESSION: Doing well status post port placement. No further follow-up scheduled unless initiated by patient and/or referring provider. Thank you for this referral Allergies Coded Allergies: No Known Allergies (Unverified , 11/03/18) ROGERS VIRK MD Jun 07, 2020 12:17
== END ==
LOC: M TMIRPOV 09:32
PROVIDERS: ATTEND Radiology Diagnostic Radiology
DX: Z45.2 Encounter for adjustment and management of vascular access device (principal)

== ENCOUNTER 2020-06-07 10:24 | Outpatient (RCR) | payer MEDICARE ==
[2020-06-14] MEDS ORDERED: PRED50TA PO (14:00)
== END 2020-06-25 ==
LOC: M ONCR 10:24
PROVIDERS: ATTEND General Practice
DX: C83.33 Diffuse large B-cell lymphoma, intra-abdominal lymph nodes (principal)

== ENCOUNTER 2020-07-19 11:11 | Day surgery (SDC) | payer MEDICARE ==
[~2020-07-19] VITALS: Ht 152.4 cm; Wt 62.7 kg
[~2020-07-19 11:11] MED LIST changes: +OMEP-218 PO; +PRED50TA PO
[2020-07-19] MEDS ORDERED: SODIUM CHLORIDE 0.9% INJ 10 ML SYR IV PRN ×2 (12:50→15:50)
[2020-07-19] MEDS ORDERED: NS 1,000 ML IV SCH (12:50)
[2020-07-19 13:10] LABS: RSV AMPLIFICATION NEGATIVE (NEGATIVE)
[2020-07-19 13:29] LABS: BASO % 0.3 % (0.0-1.0); EOS % 0.1 % (0.0-3.0); HEMATOCRIT 30.9 % (36.0-47.0); HEMOGLOBIN 9.9 g/dl (12.0-15.5); LYMPH # 0.6 10^3/uL (1.5-5.0); LYMPH % 7.5 % (24.0-44.0); MEAN CORPUSCULAR HEMOGLOBIN 30.2 pg (27.0-33.0); MEAN CORPUSCULAR VOLUME 94.2 fl (80.0-96.0); MONO # 0.6 10^3/uL (0.0-0.8); MONO % 7.5 % (2.0-8.0); NEUTROPHILS % 81.5 % (36.0-66.0); PLATELET COUNT, AUTOMATED 114 10^3/uL (150-450); RED BLOOD COUNT 3.28 10^6/uL (4.00-5.40); WHITE BLOOD COUNT 7.3 10^3/uL (4.0-10.0)
[2020-07-19] MEDS ORDERED: propofoL 200 MG/20 ML VIAL As Ordered ONE (13:33)
[2020-07-19] MEDS ORDERED: LIDOCAINE 2% 100MG/5ML SDV (FOR ANES.) As Ordered ONE (13:33)
[2020-07-19] MEDS ORDERED: fentaNYL 100 MCG/2 ML INJECTION (J3010) As Ordered ONE (13:33)
[2020-07-19 13:42] LABS: INR 0.99; PARTIAL THROMBOPLASTIN TIME 26.2 SECONDS (24.2-38.5); PROTHROMBIN TIME 13.3 SECONDS (12.5-14.3)
[2020-07-19 13:46] LABS: BLOOD UREA NITROGEN 9 MG/DL (7-18); CALCIUM LEVEL 8.5 MG/DL (8.8-10.2); CARBON DIOXIDE LEVEL 30 MEQ/L (21-32); CHLORIDE LEVEL 108 MEQ/L (98-107); GLOMERULAR FILTRATION RATE > 60.0 (>39); GLUCOSE, FASTING 91 MG/DL (70-100); POTASSIUM SERUM 3.9 MEQ/L (3.5-5.1); SODIUM LEVEL 144 MEQ/L (136-145)
[2020-07-19] MEDS ORDERED: SUCCINYLCHOLINE 100 MG/5 ML SYRINGE (J0330) As Ordered ONE (14:02)
[2020-07-19] MEDS ORDERED: ONDANSETRON 4MG/2ML VIAL As Ordered ONE (14:02)
[2020-07-19] MEDS ORDERED: dexameTHASONE 4 MG/ML 1ML VIAL (J1100 PER 1MG) As Ordered ONE (14:02)
[2020-07-19] MEDS ORDERED: ePHEDrine SULFATE 25 MG/5 ML(5MG/ML) SYRINGE As Ordered ONE (14:22)
--- NOTE | 2020-07-19 14:51 | ROOR ---
Patient Name: Grace Toribio Procedure Date: 07/19/2020 2:21 PM Date of : 1945 Age: 75 Gender: Female Note Status: Finalized Procedure: Upper GI endoscopy Indications: Dysphagia, Foreign body in the esophagus Providers: Freddie RIVER MD Referring MD: 3. Emergency Dept 3. Emergency Dept Requesting Provider: Medicines: General Anesthesia Complications: No immediate complications. Procedure: Pre-Anesthesia Assessment: - The heart rate, respiratory rate, oxygen saturations, blood pressure, adequacy of pulmonary ventilation, and response to care were monitored throughout the procedure. The Endoscope was introduced through the mouth, and advanced to the second part of duodenum. The upper GI endoscopy was accomplished without difficulty. The patient tolerated the procedure well. Findings: Food was found in the lower third of the esophagus. Removal of food was accomplished. One benign-appearing, intrinsic moderate (circumferential scarring or stenosis; an endoscope may pass) stenosis was found in the lower third of the esophagus. This stenosis measured 1 cm (in length). The stenosis was traversed. A TTS dilator was passed through the scope. Dilation with a 15-16.5-18 mm balloon dilator was performed to 17 mm. The dilation site was examined and showed moderate mucosal disruption. Moderately severe esophagitis was found in the lower third of the esophagus. Biopsies were taken with a cold forceps for histology. A medium-sized hiatal hernia was present. The entire examined stomach was normal. The examined duodenum was normal. Impression: - Food in the lower third of the esophagus. Removal was successful. - Benign-appearing esophageal stenosis. Dilated. - Moderately severe esophagitis. Biopsied. - Medium-sized hiatal hernia. - Normal stomach. - Normal examined duodenum. Recommendation: - Observe patient's clinical course. - Use Prilosec (omeprazole) 40 mg PO daily indefinitely. - Soft diet. - (the script was sent to your pharmacy on file) Procedure Code(s): --- Professional --- 51633, Esophagogastroduodenoscopy, flexible, transoral; with removal of foreign body(s) 56991, Esophagogastroduodenoscopy, flexible, transoral; with transendoscopic balloon dilation of esophagus (less than 30 mm diameter) 99794, 59, Esophagogastroduodenoscopy, flexible, transoral; with biopsy, single or multiple Diagnosis Code(s): --- Professional --- T18.108A, Unspecified foreign body in esophagus causing other injury, initial encounter R13.10, Dysphagia, unspecified K44.9, Diaphragmatic hernia without obstruction or gangrene K20.9, Esophagitis, unspecified K22.2, Esophageal obstruction T18.128A, Food in esophagus causing other injury, initial encounter CPT copyright 2019 [employer]. All rights reserved. The codes documented in this report are preliminary and upon trademark affixer review may be revised to meet current compliance requirements. Freddie River MD Freddie RIVER MD 07/19/2020 2:51:28 PM Electronically signed by Freddie RIVER MD Number of Addenda: 0 Note Initiated On: 07/19/2020 2:21 PM Estimated Blood Loss: Estimated blood loss: none.
--- NOTE | 2020-07-19 14:59 | REP ---
INDICATION: pre-op. COMPARISON: 11/04/2019. TECHNIQUE: SINGLE PORTABLE AP VIEW OF THE CHEST WAS PERFORMED. The study is submitted for interpretation at 2:54 p.m. for reasons unknown to me. FINDINGS: There is no acute infiltrate. The lungs are clear. The heart is normal in size. There is calcification of the thoracic aorta. The mediastinal silhouette is unchanged. Right central venous catheter is seen with the tip in the superior vena cava. IMPRESSION: NO ACUTE PULMONARY DISEASE. <Electronically signed by Polo Oviedo > 07/19/20 2448
[2020-07-19] MEDS ORDERED: ONDANSETRON 4MG/2ML VIAL IV PRN (15:20)
[2020-07-19] MEDS ORDERED: LR 1,000 ML IV SCH (15:20)
[2020-07-19 16:58] VITALS: BP 132/62
--- NOTE | 2020-07-19 21:13 | ECGEPIP ---
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
[2020-07-26] MEDS ORDERED: LIDO2.5C15 TOP (15:41)
== END 2020-07-19 16:58 | disposition home or self-care (01) ==
LOC: M ED 11:11 → M SDC 11:12 → M ED INP 12:48 → UNDOADMOB 12:48 → M SDC 16:58 → UNDODISOB 16:58
PROVIDERS: ATTEND Internal Medicine Gastroenterology
DX: T18.128A Food in esophagus causing other injury, initial encounter (principal); K22.2 Esophageal obstruction; K20.90 Esophagitis, unspecified without bleeding; K44.9 Diaphragmatic hernia without obstruction or gangrene; E78.5 Hyperlipidemia, unspecified; E07.9 Disorder of thyroid, unspecified; Z87.891 Personal history of nicotine dependence; Z85.72 Personal history of non-Hodgkin lymphomas; Z79.899 Other long term (current) drug therapy
CPT/HCPCS: 43239; 43247; 43249; 71045; 80048; 85025; 85610; 85730; 87631; 88305; 88312; 88313; 93005; 99284; J0330; J1100; J1642; J2405; J3010

== ENCOUNTER → 2020-09-06 | Outpatient (CLI) | payer MEDICARE ==
[~2020-09-06] MED LIST changes: +LIDO1CRE42 TOP
--- NOTE | 2020-09-06 13:47 | RADONC ---
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 She received RT to the nodes impinging on the left u reter in lieu of stent placement to protect the left kidney prior to the start of chemotherapy 8 Gy in 1 fraction on 06/07/20. She then received 4 cycles of RCHOP from 06/14/20-08/17/20. This was complicated by anemia for which she is receiving EPO support. She is seen today for further consideration of ISRT. Diagnosis/Treatment History Oncologic History Noted left leg swelling, and night sweats, in December 2020, this led to CT abdomen and pelvis on 03/30/20 which showed enlarged left sided retroperitoneal and pelvic adenopathy. CT chest on 04/13/20 showed no supradiaphragmatic disease. She had a biopsy of the pelvic adenopathy which showed DLBCL germinal center type without high risk cytogenetics. PET-CT on 05/16/20 revealed avidity in the enlarged hong agglomerates and no extranodal foci of disease. BM biopsy was performed on 05/31/20 and was negative. She received 8 Gy x 1 to the nodes obstructing the left ureter on 06/07/20. She then received RCHOP x 4 cycles from 06/14/20-08/16/20. Interval History Here with her son. Reports that she has low energy levels and suffered from acute worsening of her GERD during chemotherapy, this required EGD and dilation of an induced stricture. She has had no weight loss or further B symptoms since chemotherapy. She is has no GI or complaints today. Current Therapy ISRT pending Stage DLBCL stage IIB Social History: Former smoker 20 pack years Does not drink Allergies / Meds Allergies: Coded Allergies: No Known Allergies (Unverified , 11/03/18) Home Meds Active Scripts Lidocaine/Prilocaine (Lidocaine-Prilocaine Cream) 2.5%/2.5% Cream..g., 1 APLCT TOP ASDIRECTED, #30 GRAM Prov:LIDIA ARNDT MD 07/26/20 Prochlorperazine Maleate (Prochlorperazine Maleate) 10 Mg Tablet, 10 MG PO Q8HP PRN for NAUSEA OR VOMITING, #30 TAB 3 Refills Prov:LIDIA ARNDT MD 06/02/20 Ondansetron HCl (Ondansetron HCl) 8 Mg Tablet, 8 MG PO Q8HP PRN for NAUSEA OR VOMITING, #30 TAB 3 Refills Prov:LIDIA ARNDT MD 06/02/20 Reported Medications Omeprazole (Omeprazole) 20 Mg Capsule.dr, 1 CAP PO DAILY for 30 Days, #30 CAP 07/06/20 Vit C/E/Zn/Coppr/Lutein/Zeaxan (Preservision Areds 2 Softgel) 1 Each Capsule, 1 EACH PO, CAP 05/09/20 Multivitamins (Thera M Plus Tablet) 1 Each Tablet, 1 TAB PO QAM for 30 Days, #30 TAB 04/13/20 Cholecalciferol (Vitamin D3) (Vitamin D3) 1,000 Unit Tablet, 5000 UNITS PO DAILY for 5 Days, TAB 04/13/20 Calcium Carbonate (Calcium) 500 Mg Tablet, 2 TAB PO DAILY for 30 Days, #60 TAB 04/13/20 Lifitegrast (Xiidra) 5% Droperette 04/13/20 Pravastatin Sodium (Pravastatin Sodium) 10 Mg Tab, 10 MG PO DAILY, TAB 05/30/16 Levothyroxine Sodium (LEVOTHYROXINE SODIUM) 75 Mcg Tab, 75 MCG PO DAILY, TAB 04/10/16 Discontinued Scripts Prednisone (Prednisone) 50 Mg Tablet, 100 MG PO DAILY for Non hodgekin lymphoma for 5 Days, #10 TAB 5 Refills Prov:LIDIA ARNDT MD 06/14/20 Review of Systems Review of Systems Constitutional: Reports: Fatigue; Denies: Chills, Fever, Night Sweats, Weight Loss Eyes: Denies: Pain HEENT: Denies: Head Aches Skin: Denies: Rash Pulmonary: Denies: Dyspnea Cardiovascular: Denies: Chest Pain Gastrointestinal: Denies: Abdominal Pain Genitourinary: Denies: Dysuria, Frequency, Retention Hematologic: Denies: Bruising Endocrine: Denies: Polydipsia Musculoskeletal: Denies: Neck pain, Back pain Neurological: Denies: Weakness, Numbness Psych: Reports: Mood Normal Physical Examination Vital Signs Wt 143 lbs T 96 P 83 RR 18 BP 125/68 O2 99% Pain 0 Fatigue 1 General Exam: Positive: Alert, Cooperative, No Acute Distress Eye Exam: Positive: PERRLA, EOMI ENT EXAM: Positive: Atraumatic Neck Exam: Positive: Supple Chest Exam: Positive: Clear to auscultation Heart Exam: Positive: Rate Normal Abdomen Exam: Positive: Soft; Negative: Tenderness Extremity Exam: Negative: Edema Skin Exam: Positive: Nl turgor and temperature Neuro Exam: Positive: Normal Gait, Normal Speech, Cranial Nerves 3-12 NL Psych Exam: Positive: Mental status NL Diagnostic and Laboratory Diagnostic Review Radiologic images, relevant labs and pathology reports were personally reviewed and discussed with Ms. Toribio. Assessment and Plan Impression Assessment Ms. 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 She received RT to the nodes impinging on the left ureter in lieu of stent placement to protect the left kidney prior to the start of chemotherapy 8 Gy in 1 fraction on 06/07/20. She then received 4 cycles of RCHOP from 06/14/20-08/17/20. This was complicated by anemia for which she is receiving EPO support. She is seen today for further consideration of ISRT. She is doing relatively well post chemotherapy, has remaining anemia and had some acute GI side effects which are improved since endoscopic intervention. She has not had interim or post-chemotherapy PET-CT yet. I will order this. Contingent upon the results we discussed that she may require ISRT if there is residual activity or we may consider omitting as she has had 4 cycles of RCHOP, which is a reasonable standard of treatment based on S1001, however that trial featured an interim PET-CT and a younger lower risk cohort of patients. Overall I favor ISRT inclusion in her case as she is unlikely to have any adverse effects from RT (I can use VMAT to plan her), she had relatively bulky disease to start (>15 cm of contiguous hong involvement) which per RICOVER-60 suggests ISRT would be of benefit to her. PET-CT will be informative and once PET is obtained we can have review my final recommendation. Performance Status ECOG 1 Plan PET-CT now Decision making regarding ISRT pending PET-CT Ms. Toribio was encouraged to call with questions or concerns in the interim period. Billing Statement Total time of [29] minutes was spent preparing for the visit [3], obtaining HPI [4], examining the patient [3], reviewing diagnostic tests [3], discussing management options [7], coordinating care [3], and writing this note [6]. ADALI DURANT MD September 06, 2020 13:43
== END ==
LOC: M ONCR 11:24
PROVIDERS: ATTEND General Practice
DX: C83.33 Diffuse large B-cell lymphoma, intra-abdominal lymph nodes (principal)

== ENCOUNTER → 2020-09-11 | Outpatient (CLI) | payer MEDICARE | LOC: M PLARAD 08:59 | PROVIDERS: ATTEND Specialist | DX: Z53.8 Procedure and treatment not carried out for other reasons (principal) ==

== ENCOUNTER → 2020-10-09 | Outpatient (CLI) | payer MEDICARE ==
--- NOTE | 2020-10-10 10:17 | REP ---
INDICATION: RESTAGING LYMPHOMA. COMPARISON: 05/16/2020 latest prior TECHNIQUE: After the intravenous administration of 8.62 mCi of FDG 18 triplane whole-body PET-CT was performed from the skull base to the mid thigh. Patient received last chemotherapy 08/17/2020 with radiation therapy given August 2020 FINDINGS: The para aortic hypermetabolic activity seen on the prior exam has abated. The left paulino pelvic sidewall adenopathy and marked abnormal hypermetabolic activity seen on the prior exam has improved. The maximal SUV value in this region is 2.96. There is persistent left-sided hydronephrosis and hydroureter. There is multifocal hypermetabolic activity seen in multiple bone marrow sites but this is likely secondary to chemotherapeutic reaction. No other areas of abnormal hypermetabolic activity seen in the neck, chest, abdomen, or pelvis. IMPRESSION: There is been improvement in the left paulino pelvic tumor bulk/adenopathy and improvement in the concomitant hypermetabolism as described above. The para-aortic hypermetabolic activity seen on the prior exam has abated. Other findings as described above. <Electronically signed by Abhishek Jack > 10/10/20 1012
== END ==
LOC: M PLARAD 11:57
PROVIDERS: ATTEND Specialist
DX: C83.39 Diffuse large B-cell lymphoma, extranodal and solid organ sites (principal)
CPT/HCPCS: 78815; A9552

== ENCOUNTER → 2021-03-01 | Outpatient (CLI) | payer MEDICARE ==
[2021-03-01 18:24] LABS: CALCIUM LEVEL 9.4 MG/DL (8.8-10.2); CREATININE FOR GFR 1.19 MG/DL (0.55-1.30); GLOMERULAR FILTRATION RATE 47.2 (>39); POTASSIUM SERUM 4.1 MEQ/L (3.5-5.1)
== END ==
LOC: M PLALAB 14:05
PROVIDERS: ATTEND Nurse Practitioner Women's Health
DX: N13.30 Unspecified hydronephrosis (principal)
CPT/HCPCS: 36415; 80048; G0463

== ENCOUNTER → 2021-03-07 | Outpatient (CLI) | payer MEDICARE ==
[~2021-03-07] MED LIST changes: +ISOVUE-370 76% 100ML VIAL ONE
--- NOTE | 2021-03-07 17:14 | REP ---
INDICATION: HYDRONEPHROSIS. COMPARISON: None. TECHNIQUE: 3 mm axial images were obtained prior to IV contrast. Following IV contrast scans were obtained in the arterial phase as well as 5 and 10 minute delayed images. FINDINGS: No significant abnormality is seen at the lung bases. A large hiatal hernia is present. The liver, spleen and pancreas appear normal. Surgical clips are noted in the gallbladder fossa. The adrenal glands appear normal bilaterally. The right kidney does not contain any stones and postcontrast there are multiple subcentimeter simple cysts noted within the right kidney. The left kidney also does not contain stones but shows marked dilatation of the left renal collecting system and left ureter all the way to the midportion of the ureter as it crosses over the left iliac artery no definite stones are seen in the left ureter. Postcontrast scans demonstrate opacification of the left renal collecting system and dilated left ureter on all of the delayed studies. The area of obstruction is well-delineated but no definite cause is appreciated. There are also multiple simple cysts in the left kidney. No abnormality of the renal collecting system or ureter on the right is noted. The mucosa in the cecum and ascending colon is prominent. Is there any evidence for colitis? Moderate degenerative changes are noted in the thoracolumbar spine. IMPRESSION: Marked obstruction to the left renal collecting system and left ureter in the region of the mid to lower left ureter though the exact etiology is not discerned on this exam. Two. Multiple simple cysts both kidneys. 2. Prominent mucosa in the ascending and transverse colon. This there any evidence for colitis? 3. Large hiatal hernia. <Electronically signed by Ottoniel Crenshaw > 03/07/21 0278
== END ==
LOC: M PLAIMG 13:31
PROVIDERS: ATTEND Nurse Practitioner Women's Health
DX: N13.30 Unspecified hydronephrosis (principal); K44.9 Diaphragmatic hernia without obstruction or gangrene; N28.1 Cyst of kidney, acquired
CPT/HCPCS: 74178; Q9967

== ENCOUNTER → 2021-04-09 | Outpatient (CLI) | payer MEDICARE ==
[~2021-04-09] MED LIST changes: +FUROSEMIDE 20MG/2ML VIAL (J1940) As Ordered ONE; -ISOVUE-370 76% 100ML VIAL ONE; +OMEP-173 PO; -OMEP-218 PO; +ONDA-84 PO; -ONDA8TAB10 PO; -PROC10TA4 PO; +PROC10TA5 PO; -XIID5DRO; +XIID5DRO OU
== END ==
LOC: M RAD 07:14
PROVIDERS: ATTEND Nurse Practitioner Women's Health
DX: N13.30 Unspecified hydronephrosis (principal)
CPT/HCPCS: 78708; A9562; J1940

== ENCOUNTER → 2021-05-01 | Outpatient (CLI) | payer MEDICARE ==
[~2021-05-01] MED LIST changes: -FUROSEMIDE 20MG/2ML VIAL (J1940) As Ordered ONE; -OMEP-173 PO; +OMEP-218 PO
== END ==
LOC: M WUC 11:24
PROVIDERS: ATTEND Internal Medicine
DX: Z01.818 Encounter for other preprocedural examination (principal); Z95.828 Presence of other vascular implants and grafts; K44.9 Diaphragmatic hernia without obstruction or gangrene; Z79.899 Other long term (current) drug therapy

== ENCOUNTER → 2021-05-01 | Outpatient (REF) | payer MEDICARE ==
[~2021-05-01] MED LIST changes: -ONDA-84 PO; +ONDA8TAB10 PO; +PROC10TA4 PO; -PROC10TA5 PO; +XIID5DRO; -XIID5DRO OU
[2021-05-01 17:18] LABS: APPEARANCE, URINE CLEAR (CLEAR); BACTERIA, URINE AUTO NEGATIVE (NEGATIVE); BILIRUBIN, URINE AUTO NEGATIVE (NEGATIVE); BLOOD, URINE BLOOD NEGATIVE (NEGATIVE); COLOR, URINE STRAW (YELLOW); GLUCOSE, URINE (UA) AUTO NEGATIVE (NEGATIVE); KETONE, URINE AUTO NEGATIVE (NEGATIVE); LEUKOCYTE ESTERASE, URINE AUTO NEGATIVE (NEGATIVE); NITRITE, URINE AUTO NEGATIVE (NEGATIVE); PROTEIN, URINE AUTO NEGATIVE (NEGATIVE); RBC, URINE AUTO 0 /HPF (0-3); SPECIFIC GRAVITY URINE AUTO 1.003 (1.002-1.035); SQUAMOUS EPITHELIAL CELL UR AU 0 /HPF (0-6); UROBILINOGEN, URINE AUTO 0.2 mg/dL (0.0-2.0); WBC, URINE AUTO 0 /HPF (0-3)
[2021-05-01 19:07] LABS: INR 0.91; PROTHROMBIN TIME 12.6 SECONDS (12.7-14.5)
[2021-05-01 19:08] LABS: PARTIAL THROMBOPLASTIN TIME 29.4 SECONDS (25.9-37.0)
== END ==
LOC: M LAB REF 16:38
PROVIDERS: ATTEND Internal Medicine
DX: Z01.818 Encounter for other preprocedural examination (principal); Z79.899 Other long term (current) drug therapy

== ENCOUNTER → 2021-05-04 | Outpatient (CLI) | payer MEDICARE ==
[~2021-05-04] MED LIST changes: +ONDA-84 PO; -ONDA8TAB10 PO; -PROC10TA4 PO; +PROC10TA5 PO; -XIID5DRO; +XIID5DRO OU
== END ==
LOC: M LABSMTC 09:48
PROVIDERS: ATTEND Anesthesiology
DX: Z01.812 Encounter for preprocedural laboratory examination (principal); Z11.52 Encounter for screening for COVID-19

== ENCOUNTER → 2021-06-01 | Outpatient (CLI) | payer MEDICARE ==
[~2021-06-01] MED LIST changes: +GASTROGRAFIN SOLUTION 30ML (Q9963) As Ordered ONE; +ISOVUE-370 76% 100ML VIAL As Ordered ONE; +OMEP-173 PO; -OMEP-218 PO
== END ==
LOC: M RAD 11:13
PROVIDERS: ATTEND Specialist
DX: C83.30 Diffuse large B-cell lymphoma, unspecified site (principal); K44.9 Diaphragmatic hernia without obstruction or gangrene; K57.30 Diverticulosis of large intestine without perforation or abscess without bleeding; N28.1 Cyst of kidney, acquired; Z96.0 Presence of urogenital implants
CPT/HCPCS: 71260; 74177; Q9963; Q9967

== ENCOUNTER → 2021-07-19 | Outpatient (CLI) | payer MEDICARE ==
[~2021-07-19] MED LIST changes: -D31000TA2 PO; -GASTROGRAFIN SOLUTION 30ML (Q9963) As Ordered ONE; -ISOVUE-370 76% 100ML VIAL As Ordered ONE; +VITA100093 PO
== END ==
LOC: M RAD 14:00
PROVIDERS: ATTEND Urology
DX: N13.5 Crossing vessel and stricture of ureter without hydronephrosis (principal)

== ENCOUNTER → 2021-10-05 | Outpatient (CLI) | payer MEDICARE | LOC: M RAD 15:33 | PROVIDERS: ATTEND Urology | DX: N13.30 Unspecified hydronephrosis (principal); N28.1 Cyst of kidney, acquired ==

== ENCOUNTER → 2021-11-22 | Outpatient (REF) | payer MEDICARE | LOC: M LAB REF 16:02 | PROVIDERS: ATTEND Internal Medicine | DX: M06.4 Inflammatory polyarthropathy (principal); M25.552 Pain in left hip ==

== ENCOUNTER → 2021-11-30 | Outpatient (CLI) | payer MEDICARE | LOC: M WHC 07:55 | PROVIDERS: ATTEND Internal Medicine | DX: Z12.31 Encounter for screening mammogram for malignant neoplasm of breast (principal) ==

== ENCOUNTER → 2021-12-10 | Outpatient (CLI) | payer MEDICARE ==
[~2021-12-10] MED LIST changes: +GASTROGRAFIN SOLUTION 30ML (Q9963) As Ordered ONE; +ISOVUE-370 76% 100ML VIAL As Ordered ONE
== END ==
LOC: M RAD 11:03
PROVIDERS: ATTEND Specialist
DX: C83.30 Diffuse large B-cell lymphoma, unspecified site (principal); N13.30 Unspecified hydronephrosis; N13.4 Hydroureter
CPT/HCPCS: 74177; Q9963; Q9967

== ENCOUNTER → 2022-03-06 | Outpatient (CLI) | payer MEDICARE ==
[~2022-03-06] MED LIST changes: +ACET650T61 PO; +ALEN70TA87 PO; +DICL20GE TP; +DULO1CAP4; -FOSA70TA PO; -GASTROGRAFIN SOLUTION 30ML (Q9963) As Ordered ONE; -ISOVUE-370 76% 100ML VIAL As Ordered ONE; +META28.32 PO; +PRESCAP PO
== END ==
LOC: M PLAIMG 10:59
PROVIDERS: ATTEND Internal Medicine
DX: M51.37 Other intervertebral disc degeneration, lumbosacral region (principal); M54.31 Sciatica, right side; M85.851 Other specified disorders of bone density and structure, right thigh; M85.852 Other specified disorders of bone density and structure, left thigh

== ENCOUNTER → 2022-03-06 | Outpatient (CLI) | payer MEDICARE | LOC: M WHC 09:54 | PROVIDERS: ATTEND Internal Medicine | DX: M85.851 Other specified disorders of bone density and structure, right thigh (principal); M85.852 Other specified disorders of bone density and structure, left thigh ==

== ENCOUNTER → 2022-04-12 | Outpatient (CLI) | payer MEDICARE ==
[~2022-04-12] MED LIST changes: -DULO1CAP4; +GASTROGRAFIN SOLUTION 30ML As Ordered ONE; +ISOVUE-370 76% 100ML VIAL As Ordered ONE; -META28.32 PO; -PRESCAP PO
== END ==
LOC: M RAD 11:11
PROVIDERS: ATTEND Specialist
DX: C83.33 Diffuse large B-cell lymphoma, intra-abdominal lymph nodes (principal)
CPT/HCPCS: 71260; 74177; Q9963; Q9967

== ENCOUNTER 2022-05-09 14:17 | Outpatient (CLI) | payer MEDICARE ==
[~2022-05-09] VITALS: Ht 152.4 cm; Wt 64.5 kg
[~2022-05-09 14:17] MED LIST changes: +DULO1CAP4; -GASTROGRAFIN SOLUTION 30ML As Ordered ONE; -ISOVUE-370 76% 100ML VIAL As Ordered ONE; +META28.32 PO; +PRESCAP PO
[2022-05-09] MEDS ORDERED: ZOLEDRONIC ACID 5 MG in IV 1 EA IV ONE (14:30)
[2022-05-09 14:32] VITALS: BP 139/81
[2022-05-09 15:09] VITALS: BP 126/58
== END 2022-05-09 15:10 | disposition home or self-care (01) ==
LOC: M INFU 14:17
PROVIDERS: ATTEND Internal Medicine
DX: M81.0 Age-related osteoporosis without current pathological fracture (principal)

== ENCOUNTER → 2022-06-27 | Outpatient (CLI) | payer MEDICARE ==
[~2022-06-27] MED LIST changes: +PROHANCE 279.3MG/ML 15ML VIAL As Ordered ONE
== END ==
LOC: M RAD 12:34
PROVIDERS: ATTEND Orthopaedic Surgery
DX: M16.11 Unilateral primary osteoarthritis, right hip (principal)
CPT/HCPCS: 73723; A9576

== ENCOUNTER → 2022-08-15 | Outpatient (REF) | payer MEDICARE ==
[~2022-08-15] MED LIST changes: +CLAR10CA3 PO; -PROHANCE 279.3MG/ML 15ML VIAL As Ordered ONE; +TUMS500C PO
== END ==
LOC: M LAB REF 14:32
PROVIDERS: ATTEND Internal Medicine
DX: E78.5 Hyperlipidemia, unspecified (principal)

== ENCOUNTER → 2022-09-03 | Outpatient (POV) | payer MEDICARE ==
[~2022-09-03] VITALS: Ht 154.9 cm; Wt 68.1 kg
[2022-09-03 09:40] VITALS: BP 145/69
== END ==
LOC: M IRPOV 09:34
PROVIDERS: ATTEND Radiology Diagnostic Radiology
DX: Z45.2 Encounter for adjustment and management of vascular access device (principal)

== ENCOUNTER → 2022-09-09 | Outpatient (CLI) | payer MEDICARE ==
[~2022-09-09] MED LIST changes: +LIDOCAINE 1% MDV 20ML VIAL As Ordered ONE; +MIDAZOLAM INJ 2MG/2ML VIAL As Ordered ONE; +NS 1,000 ML IV SCH; +ceFAZolin SOD 2 GM in IV 1 EA IV ONE; +diphenhydrAMINE 50MG/ML VIAL As Ordered ONE; +fentaNYL 100 MCG/2 ML INJECTION As Ordered ONE
[2022-09-09 15:30] VITALS: BP 132/64
== END ==
LOC: M IRPRO 12:32
PROVIDERS: ATTEND Nurse Practitioner
DX: C83.30 Diffuse large B-cell lymphoma, unspecified site (principal)
CPT/HCPCS: 36590; 99152; J2250; J3010

== ENCOUNTER → 2022-09-24 | Outpatient (POV) | payer MEDICARE ==
[~2022-09-24] VITALS: Ht 154.9 cm; Wt 68.1 kg
[~2022-09-24] MED LIST changes: -LIDOCAINE 1% MDV 20ML VIAL As Ordered ONE; -MIDAZOLAM INJ 2MG/2ML VIAL As Ordered ONE; -NS 1,000 ML IV SCH; -ceFAZolin SOD 2 GM in IV 1 EA IV ONE; -diphenhydrAMINE 50MG/ML VIAL As Ordered ONE; -fentaNYL 100 MCG/2 ML INJECTION As Ordered ONE
[2022-09-24 13:45] VITALS: BP 133/63
== END ==
LOC: M IRPOV 13:38
PROVIDERS: ATTEND Radiology Diagnostic Radiology
DX: Z45.2 Encounter for adjustment and management of vascular access device (principal)

== ENCOUNTER → 2022-12-31 | Outpatient (CLI) | payer MEDICARE ==
[~2022-12-31] MED LIST changes: -LIDO1CRE42 TOP; +LIDO30CR18 TOP
== END ==
LOC: M RAD 14:34
PROVIDERS: ATTEND Urology
DX: N13.30 Unspecified hydronephrosis (principal)

== ENCOUNTER → 2023-01-06 | Outpatient (CLI) | payer MEDICARE ==
[2023-01-06 09:57] LABS: HEMATOCRIT 35.5 % (36.0-47.0); HEMOGLOBIN 11.4 g/dl (12.0-15.5); MEAN CORPUSCULAR HEMOGLOBIN 31.8 pg (27.0-33.0); MEAN CORPUSCULAR HGB CONC 32.1 g/dl (32.0-36.5); MEAN CORPUSCULAR VOLUME 99.2 fl (80.0-96.0); PLATELET COUNT, AUTOMATED 229 10^3/uL (150-450); RED BLOOD COUNT 3.58 10^6/uL (4.00-5.40); WHITE BLOOD COUNT 4.8 10^3/uL (4.0-10.0)
[2023-01-06 10:14] LABS: INR 1.04; PROTHROMBIN TIME 13.3 SECONDS (12.5-14.5)
[2023-01-06 10:23] LABS: ALBUMIN 3.9 G/DL (3.2-5.2); ALKALINE PHOSPHATASE 71 U/L (46-116); ALT/SGPT 17 U/L (7.0-40); AST/SGOT 8 U/L (<34); BILIRUBIN,TOTAL 0.7 MG/DL (0.3-1.2); BLOOD UREA NITROGEN 16 MG/DL (9-23); CALCIUM LEVEL 8.8 MG/DL (8.3-10.6); CARBON DIOXIDE LEVEL 27 MMOL/L (20-31); CHLORIDE LEVEL 104 MMOL/L (98-107); CREATININE FOR GFR 0.75 MG/DL (0.55-1.30); GLOMERULAR FILTRATION RATE > 60.0 (>39); GLUCOSE, FASTING 96 MG/DL (74-106); POTASSIUM SERUM 4.2 MMOL/L (3.5-5.1); SODIUM LEVEL 138 MMOL/L (136-145); TOTAL PROTEIN 7.4 G/DL (5.7-8.2)
[2023-01-06 11:14] LABS: ERYTHROCYTE SEDIMENTATION RATE 27 mm/hr (0-30)
== END ==
LOC: M RAD 08:59
PROVIDERS: ATTEND Orthopaedic Surgery
DX: Z01.818 Encounter for other preprocedural examination (principal); M16.11 Unilateral primary osteoarthritis, right hip

== ENCOUNTER → 2023-01-07 | Outpatient (CLI) | payer MEDICARE | LOC: M PLAIMG 08:40 | PROVIDERS: ATTEND Urology | DX: N20.0 Calculus of kidney (principal); N13.30 Unspecified hydronephrosis; K57.30 Diverticulosis of large intestine without perforation or abscess without bleeding ==

== ENCOUNTER 2023-05-14 14:37 | Outpatient (CLI) | payer MEDICARE ==
[~2023-05-14 14:37] MED LIST changes: +IRON65TA2 PO
[2023-05-14 14:45] VITALS: BP 168/60; O2SAT 96
[2023-05-14] MEDS ORDERED: ZOLEDRONIC ACID 5 MG in IV 1 EA IV ONE (15:00)
[2023-05-14 15:35] VITALS: BP 123/62; O2SAT 96
== END 2023-05-14 15:35 | disposition home or self-care (01) ==
LOC: M INFU 14:37
PROVIDERS: ATTEND Internal Medicine
DX: M81.0 Age-related osteoporosis without current pathological fracture (principal)
CPT/HCPCS: 96413; J3489

== ENCOUNTER → 2023-07-08 | Outpatient (CLI) | payer MEDICARE | LOC: M WUC 13:16 | PROVIDERS: ATTEND Internal Medicine | DX: M25.552 Pain in left hip (principal); M54.50 Low back pain, unspecified ==

== ENCOUNTER → 2023-07-18 | Outpatient (CLI) | payer MEDICARE | LOC: M WHC 09:56 | PROVIDERS: ATTEND Internal Medicine | DX: Z12.31 Encounter for screening mammogram for malignant neoplasm of breast (principal) ==

== ENCOUNTER → 2023-08-15 | Outpatient (CLI) | payer MEDICARE | LOC: M RAD 08:14 | PROVIDERS: ATTEND Internal Medicine | DX: Z12.2 Encounter for screening for malignant neoplasm of respiratory organs (principal); F17.211 Nicotine dependence, cigarettes, in remission ==

== ENCOUNTER → 2023-11-25 | Outpatient (CLI) | payer MEDICARE ==
[~2023-11-25] MED LIST changes: +GASTROGRAFIN SOLUTION 30ML As Ordered ONE; +ISOVUE-370 76% 100ML VIAL As Ordered ONE
== END ==
LOC: M RAD 12:00
PROVIDERS: ATTEND Specialist
DX: C83.30 Diffuse large B-cell lymphoma, unspecified site (principal); K44.9 Diaphragmatic hernia without obstruction or gangrene; N13.4 Hydroureter; N13.30 Unspecified hydronephrosis
CPT/HCPCS: 71260; 74177; Q9963; Q9967

== ENCOUNTER 2024-05-27 14:11 | Outpatient (CLI) | payer MEDICARE ==
[~2024-05-27] VITALS: Ht 152.4 cm; Wt 68.2 kg
[~2024-05-27 14:11] MED LIST changes: -GASTROGRAFIN SOLUTION 30ML As Ordered ONE; -ISOVUE-370 76% 100ML VIAL As Ordered ONE
[2024-05-27 14:20] VITALS: BP 131/59; O2SAT 98
[2024-05-27] MEDS: ZOLEDRONIC ACID 5 MG in IV 1 EA IV ONE (14:30)
[2024-05-27 15:00] VITALS: BP 129/74; O2SAT 98
== END 2024-05-27 15:15 ==
LOC: M INFU 14:11
PROVIDERS: ATTEND Internal Medicine
DX: M89.9 Disorder of bone, unspecified (principal)
CPT/HCPCS: 96365; J3489

== ENCOUNTER → 2024-07-30 | Outpatient (CLI) | payer MEDICARE | LOC: M WHC 08:53 | PROVIDERS: ATTEND Internal Medicine | DX: Z12.31 Encounter for screening mammogram for malignant neoplasm of breast (principal); Z13.820 Encounter for screening for osteoporosis; R92.313 Mammographic fatty tissue density, bilateral breasts; Z78.0 Asymptomatic menopausal state ==

== ENCOUNTER → 2024-12-20 | Outpatient (CLI) | payer MEDICARE, MEDICAID ==
[~2024-12-20] MED LIST changes: +ISOVUE-370 76% 100 ML VIAL As Ordered ONE; +LIFI1DRO4 OU; -PRAV10TA3 PO; +PRAV10TA43 PO; -PRAV40TA2 PO; +PRAV40TA85 PO; -PRED50TA PO; +PRED50TA57 PO; -XIID5DRO OU
== END ==
LOC: M RAD 13:49
PROVIDERS: ATTEND Specialist
DX: C83.80 Other non-follicular lymphoma, unspecified site (principal)
CPT/HCPCS: 71260; 74177; Q9967